=== PATIENT | male | born 1940 | race Caucasian/White ===

== ENCOUNTER 2017-03-09 19:08 | Emergency (ER) | payer OTHER ==
[~2017-03-09 19:08] MED LIST: ACT15 PO; ALDACTONE25 MG PO; BACO TOP; ELIQUIS2.5 MG PO; FOLIC ACID1 MG PO; GABAPENTIN100 M2 PO; GLIPIZIDE2.5 M1 PO; HIBICLENS118 ML TOP; HUMULIN R100 U/1 M1 SC; IBUPROFEN400 MG PO; LISINOPRIL2.5 MG PO; METFORMIN ER500 M1 PO; METHOTREXATE2.5 M2 PO; NEU300 PO; SIMVASTATIN10 M1 PO; VERAPAMIL HCL120 M2 PO
[2017-03-09 21:29] LABS: BASOPHIL % 0.3 % (0-2); PLATELET COUNT 328 x10^3mcL (130-400); RED CELL DISTRIBUTION WIDTH 13.6 % (11.5-14.5)
[2017-03-09 21:43] LABS: CALCIUM 9.4 mg/dL (8.5-10.1); CARBON DIOXIDE 29.8 mmol/L (21-32); CHLORIDE SERUM 106 mmol/L (98-107); GLUCOSE SERUM 121 mg/dL (74-106); POTASSIUM SERUM 4.1 mmol/L (3.5-5.1); SODIUM SERUM 141 mmol/L (136-145)
[2017-03-09 21:48] LABS: ALBUMIN 3.8 g/dL (3.4-5.0); ALKALINE PHOSPHATASE 84 U/L (46-116); ALT/SGPT 14 U/L (16-63); AST/SGOT 14 U/L (15-37); BILIRUBIN TOTAL 0.38 mg/dL (0.20-1.00); TOTAL PROTEIN, SERUM 8.2 g/dL (6.4-8.2)
[2017-03-09 22:05] LABS: CK-MB 3.6 ng/mL (0-3.6)
[2017-03-09 23:06] VITALS: BP 136/76
== END 2017-03-09 23:06 | disposition home or self-care (01) ==
LOC: ED 19:08
PROVIDERS: Emergency Medicine
DX: S86.911A Strain of unspecified muscle(s) and tendon(s) at lower leg level, right leg, initial encounter (principal); Z88.5 Allergy status to narcotic agent; E78.00 Pure hypercholesterolemia, unspecified; W18.30XA Fall on same level, unspecified, initial encounter; Y93.89 Activity, other specified; Y92.89 Other specified places as the place of occurrence of the external cause; Y99.8 Other external cause status
CPT/HCPCS: 36415

== ENCOUNTER 2017-06-03 11:16 | Inpatient (IN) | payer OTHER ==
[~2017-06-03] VITALS: Ht 170.2 cm; Wt 80.3 kg
[2017-06-03 13:42] LABS: CALCIUM 8.8 mg/dL (8.5-10.1); CARBON DIOXIDE 29.8 mmol/L (21-32); CHLORIDE SERUM 101 mmol/L (98-107); CREATININE SERUM 0.7 mg/dL (0.7-1.3); GLUCOSE SERUM 196 mg/dL (74-106); POTASSIUM SERUM 3.8 mmol/L (3.5-5.1); SODIUM SERUM 138 mmol/L (136-145)
[2017-06-03 13:43] LABS: BASOPHIL % 0.5 % (0-2); PLATELET COUNT 317 x10^3mcL (130-400)
[2017-06-03 13:46] LABS: ALBUMIN 3.4 g/dL (3.4-5.0); ALKALINE PHOSPHATASE 78 U/L (46-116); ALT/SGPT 16 U/L (16-63); AST/SGOT 10 U/L (15-37); BILIRUBIN TOTAL 0.4 mg/dL (0.20-1.00); TOTAL PROTEIN, SERUM 7.3 g/dL (6.4-8.2)
[2017-06-03 13:51] LABS: RED CELL DISTRIBUTION WIDTH 14.9 % (11.5-14.5)
[2017-06-03 14:30] LABS: microscopic required? NO
[2017-06-03] MEDS ORDERED: GLUCOTROL10 MG PO (15:41)
[2017-06-03] MEDS ORDERED: METFORMIN HCL1000 MG PO (15:42)
[2017-06-03 15:43] VITALS: BP 154/75
[2017-06-03 15:50] VITALS: BP 154/75
[2017-06-03 15:52] LABS: UA SPECIFIC GRAVITY 1.015 (1.005-1.035); urine erythrocyte NEGATIVE (NEGATIVE)
[2017-06-03 17:30] LABS: AMPHETAMINE QUAL UR NONE DETECTED (NEG <=1000)
[2017-06-03 17:46] LABS: MAGNESIUM 1.6 mg/dL (1.8-2.4); PHOSPHOROUS 3.5 mg/dL (2.5-4.9)
[2017-06-03 17:50] LABS: FREE T4 1.2 ng/dL (0.76-1.46); FREE THYROXINE INDEX 3.2 ug/dL (1.4-4.5); T4(THYROXINE) 8.7 ug/dL (4.7-13.3)
[2017-06-03 18:07] VITALS: BP 157/67
[2017-06-03 21:27] VITALS: BP 158/75
[2017-06-04 03:22] LABS: T3 TOTAL 0.7 ng/mL
[2017-06-04 04:56] VITALS: BP 111/53
[2017-06-04 06:35] LABS: BASOPHIL % 0.7 % (0-2); PLATELET COUNT 275 x10^3mcL (130-400)
[2017-06-04 06:49] LABS: CALCIUM 8.7 mg/dL (8.5-10.1); CARBON DIOXIDE 24.9 mmol/L (21-32); CHLORIDE SERUM 108 mmol/L (98-107); CREATININE SERUM 0.6 mg/dL (0.7-1.3); GLUCOSE SERUM 92 mg/dL (74-106); POTASSIUM SERUM 3.9 mmol/L (3.5-5.1); SODIUM SERUM 142 mmol/L (136-145)
[2017-06-04 06:56] LABS: RED CELL DISTRIBUTION WIDTH 15.3 % (11.5-14.5)
[2017-06-04 13:24] VITALS: BP 140/74
[2017-06-04 18:06] VITALS: BP 133/60
[2017-06-04 21:09] VITALS: BP 104/42
[2017-06-05 06:10] VITALS: BP 134/64
[2017-06-05 08:13] LABS: CARBON DIOXIDE 25.7 mmol/L (21-32); CHLORIDE SERUM 107 mmol/L (98-107); CREATININE SERUM 0.6 mg/dL (0.7-1.3); MAGNESIUM 1.6 mg/dL (1.8-2.4); PHOSPHOROUS 3.4 mg/dL (2.5-4.9); POTASSIUM SERUM 4.2 mmol/L (3.5-5.1); SODIUM SERUM 141 mmol/L (136-145)
[2017-06-05 08:27] LABS: BASOPHIL % 0.1 % (0-2); PLATELET COUNT 261 x10^3mcL (130-400)
[2017-06-05 08:55] LABS: RED CELL DISTRIBUTION WIDTH 15.1 % (11.5-14.5)
[2017-06-05 09:02] LABS: GLUCOSE SERUM 34 mg/dL (74-106)
[2017-06-05 10:11] VITALS: BP 143/62
[2017-06-05 13:30] VITALS: BP 131/60
[2017-06-05 17:04] VITALS: BP 141/60
[2017-06-05 17:05] VITALS: BP 124/66
[2017-06-05 21:37] VITALS: BP 130/64
[2017-06-06 06:19] VITALS: BP 131/58
[2017-06-06 08:33] LABS: CALCIUM 8.3 mg/dL (8.5-10.1); CARBON DIOXIDE 25.4 mmol/L (21-32); CHLORIDE SERUM 104 mmol/L (98-107); CREATININE SERUM 0.6 mg/dL (0.7-1.3); GLUCOSE SERUM 106 mg/dL (74-106); MAGNESIUM 1.7 mg/dL (1.8-2.4); POTASSIUM SERUM 4.3 mmol/L (3.5-5.1); SODIUM SERUM 137 mmol/L (136-145)
[2017-06-06 09:10] LABS: BASOPHIL % 0.7 % (0-2); PLATELET COUNT 283 x10^3mcL (130-400); RED CELL DISTRIBUTION WIDTH 14.7 % (11.5-14.5)
[2017-06-06 10:01] VITALS: BP 149/65
[2017-06-06 11:47] VITALS: BP 149/65
[2017-06-06] MEDS ORDERED: AMOXICILLIN500 MG PO (12:45)
[2017-06-06] MEDS ORDERED: LAC PO (12:46)
[2017-06-06 12:59] VITALS: BP 126/62
[2017-06-06 22:33] VITALS: BP 153/78
[2017-06-07 07:05] VITALS: BP 145/63
[2017-06-07 07:52] LABS: BASOPHIL % 0.8 % (0-2); PLATELET COUNT 290 x10^3mcL (130-400); RED CELL DISTRIBUTION WIDTH 14.5 % (11.5-14.5)
[2017-06-07 08:59] LABS: CALCIUM 8.8 mg/dL (8.5-10.1); CARBON DIOXIDE 24.9 mmol/L (21-32); CHLORIDE SERUM 102 mmol/L (98-107); CREATININE SERUM 0.6 mg/dL (0.7-1.3); GLUCOSE SERUM 120 mg/dL (74-106); MAGNESIUM 1.7 mg/dL (1.8-2.4); POTASSIUM SERUM 4.3 mmol/L (3.5-5.1); SODIUM SERUM 136 mmol/L (136-145)
[2017-06-07 10:00] VITALS: BP 128/55
[2017-06-07 17:52] VITALS: BP 124/77
[2017-06-07 18:19] VITALS: BP 149/65
== END 2017-06-07 19:43 | DRG 602 ==
LOC: ED 11:16 → MU 14:18 → DU 14:18 → MU 06-06 22:04
PROVIDERS: Emergency Medicine; Family Medicine; Family Medicine Sports Medicine
DX: L03.115 Cellulitis of right lower limb (principal); N17.0 Acute kidney failure with tubular necrosis; E11.51 Type 2 diabetes mellitus with diabetic peripheral angiopathy without gangrene; E11.65 Type 2 diabetes mellitus with hyperglycemia; L03.116 Cellulitis of left lower limb; E83.42 Hypomagnesemia; I87.2 Venous insufficiency (chronic) (peripheral); D64.9 Anemia, unspecified; I10 Essential (primary) hypertension; M06.9 Rheumatoid arthritis, unspecified; R29.6 Repeated falls; E78.5 Hyperlipidemia, unspecified; Z91.81 History of falling; Z79.4 Long term (current) use of insulin; Z68.27 Body mass index [BMI] 27.0-27.9, adult; Z79.84 Long term (current) use of oral hypoglycemic drugs
CPT/HCPCS: 82962; 83880; 84439; 97110-GP; 97116-GP; 97530-GP; J0290; J0295; J1885; J3490; J7030; J7042; J7050; Q0092; Q0163

== ENCOUNTER 2017-08-17 15:43 | Emergency (ER) | payer OTHER ==
[~2017-08-17] VITALS: Ht 172.7 cm; Wt 81.6 kg
[~2017-08-17 15:43] MED LIST changes: +AMOXICILLIN500 MG PO; +GLUCOTROL10 MG PO; +LAC PO; +METFORMIN HCL1000 MG PO
[2017-08-17 15:49] VITALS: Ht 172.7 cm; Wt 81.6 kg
[2017-08-17 17:07] LABS: microscopic required? NO
[2017-08-17 17:24] LABS: BASOPHIL % 0.2 % (0-2); PLATELET COUNT 355 x10^3mcL (130-400); RED CELL DISTRIBUTION WIDTH 14.5 % (11.5-14.5)
[2017-08-17 17:29] LABS: CALCIUM 8.9 mg/dL (8.5-10.1); CARBON DIOXIDE 27.4 mmol/L (21-32); CHLORIDE SERUM 102 mmol/L (98-107); CREATININE SERUM 0.8 mg/dL (0.7-1.3); GLUCOSE SERUM 91 mg/dL (74-106); POTASSIUM SERUM 4.3 mmol/L (3.5-5.1); SODIUM SERUM 137 mmol/L (136-145)
[2017-08-17 17:30] LABS: UA SPECIFIC GRAVITY 1.015 (1.005-1.035); urine erythrocyte NEGATIVE (NEGATIVE)
[2017-08-17 17:34] LABS: ALBUMIN 3.4 g/dL (3.4-5.0); ALKALINE PHOSPHATASE 74 U/L (46-116); ALT/SGPT 15 U/L (16-63); AST/SGOT 13 U/L (15-37); BILIRUBIN TOTAL 0.2 mg/dL (0.20-1.00); TOTAL PROTEIN, SERUM 7.8 g/dL (6.4-8.2)
[2017-08-17 18:38] VITALS: BP 120/64
== END 2017-08-17 18:38 | disposition home or self-care (01) ==
LOC: ED 15:43
PROVIDERS: Emergency Medicine
DX: S09.8XXA Other specified injuries of head, initial encounter (principal); M25.511 Pain in right shoulder; M54.9 Dorsalgia, unspecified; I10 Essential (primary) hypertension; E11.9 Type 2 diabetes mellitus without complications; E78.00 Pure hypercholesterolemia, unspecified; M06.9 Rheumatoid arthritis, unspecified; Z88.5 Allergy status to narcotic agent; W18.30XA Fall on same level, unspecified, initial encounter; Y93.89 Activity, other specified; Y99.8 Other external cause status; Y92.89 Other specified places as the place of occurrence of the external cause
CPT/HCPCS: 36415

== ENCOUNTER 2018-01-08 19:27 | Emergency (ER) | payer OTHER ==
[~2018-01-08] VITALS: Ht 170.2 cm; Wt 77.1 kg
[2018-01-08 19:33] VITALS: Ht 170.2 cm; Wt 77.1 kg
[2018-01-08 21:50] LABS: BASOPHIL % 0.6 % (0-2); PLATELET COUNT 315 x10^3mcL (130-400); RED CELL DISTRIBUTION WIDTH 14.5 % (11.5-14.5)
[2018-01-08 22:01] LABS: CALCIUM 9.4 mg/dL (8.5-10.1); CARBON DIOXIDE 26.5 mmol/L (21-32); CHLORIDE SERUM 103 mmol/L (98-107); CREATININE SERUM 0.8 mg/dL (0.7-1.3); GLUCOSE SERUM 78 mg/dL (74-106); POTASSIUM SERUM 3.8 mmol/L (3.5-5.1); SODIUM SERUM 140 mmol/L (136-145)
[2018-01-08 22:06] LABS: ALBUMIN 3.9 g/dL (3.4-5.0); ALKALINE PHOSPHATASE 74 U/L (46-116); ALT/SGPT 20 U/L (16-63); AST/SGOT 11 U/L (15-37); CHOLESTEROL 149 mg/dL (<200); URIC ACID 6.1 mg/dL (3.5-7.2)
[2018-01-08 22:08] LABS: HDL CHOLESTEROL 67 mg/dL (40-60); TOTAL PROTEIN, SERUM 8.5 g/dL (6.4-8.2)
[2018-01-08 23:14] VITALS: BP 151/91
== END 2018-01-08 23:14 | disposition home or self-care (01) ==
LOC: ED 19:27
PROVIDERS: Emergency Medicine
DX: I87.8 Other specified disorders of veins (principal); I10 Essential (primary) hypertension; E11.9 Type 2 diabetes mellitus without complications; E78.00 Pure hypercholesterolemia, unspecified; M06.9 Rheumatoid arthritis, unspecified; Z88.5 Allergy status to narcotic agent
CPT/HCPCS: 36415; 83880; Q0092

== ENCOUNTER 2018-11-17 15:39 | Inpatient (IN) | payer OTHER ==
[~2018-11-17] VITALS: Ht 172.7 cm; Wt 89.4 kg
[2018-11-17 15:46] VITALS: Ht 172.7 cm; Wt 89.4 kg
--- NOTE | 2018-11-17 15:51 | NUR ---
PT WAS B/B AMBULANCE FROM HOME FOR ALOC. PT WAS A/OX3. FOLLOWS COMMAND, SPEAKS FULL SENTENCES, LITTLE BIT OF HARD HEARING. LUNG SOUND CLEAR, BRATHING EVEN. NO SOB. ABDOMEN ROUND AND OBESE. BILATERAL LOWER EXTREMITES SWELLING WITH CELLULITIS. HX OF DM.
[2018-11-17 16:32] LABS: PLATELET COUNT 281 x10^3mcL (130-400); RED CELL DISTRIBUTION WIDTH 14.4 % (11.5-14.5)
[2018-11-17 16:38] LABS: CALCIUM 9.2 mg/dL (8.5-10.1); CARBON DIOXIDE 23.8 mmol/L (21-32); CHLORIDE SERUM 96 mmol/L (98-107); GLUCOSE SERUM 289 mg/dL (74-106); POTASSIUM SERUM 3.8 mmol/L (3.5-5.1); SODIUM SERUM 131 mmol/L (136-145)
[2018-11-17 16:42] LABS: ALBUMIN 3.8 g/dL (3.4-5.0); ALKALINE PHOSPHATASE 95 U/L (46-116); ALT/SGPT 15 U/L (16-63); AST/SGOT 6 U/L (15-37); BILIRUBIN TOTAL 0.64 mg/dL (0.20-1.00)
--- NOTE | 2018-11-17 17:07 | NUR ---
PT FEELING OF THIRSTY. WATER WAS OFFERED TO PT.
[2018-11-17 17:25] LABS: BAND NEUTROPHIL 16 % (0-10); BASOPHIL 0 % (0-2); MONOCYTE 1 % (0-7); SEGMENTED NEUTROPHILS 80 % (37-75)
[2018-11-17 17:26] LABS: PLATELET MORPHOLOGY GIANT PLATELET SEEN; rbc morphology (normal/abnorm) NORMAL (NORMAL)
--- NOTE | 2018-11-17 18:26 | NUR ---
URINE SAMPLE WAS COLLECTED. URINE DIP DONE. SAMPLE SENT TO LAB.
--- NOTE | 2018-11-17 19:10 | NUR ---
REPORT RECEIVED FROM HIRNE BLAKE
[2018-11-17 19:13] LABS: microscopic required? YES; urine erythrocyte NEGATIVE (NEGATIVE)
--- NOTE | 2018-11-17 20:01 | NUR ---
REPORT GIVEN TO TODD BLAKE
--- NOTE | 2018-11-17 20:10 | NUR ---
RECEIVED PT VIA GUERNEY FROM E/D, ACCOMPANIED BY RN AND TRANSPORTER. PT A/A/O X 4, CALM, COOPERATIVE; PT RED CLIFF BILATERAL EARS. PT W/ GENERALIZED WEAKNESS, STATES THAT HE AMBULATES AT HOME W/ WALKER OR VIA W/C; FALL RISK PROTOCOL INITIATED. ON TELE # 22, HR 98, SR W/ BBB, DENIES CHEST PAIN OR DISCOMFORT AT THIS TIME. BEATA RADIAL PULSES PRESENT, BEATA PEDAL PULSES WEAK, +3 PITTING EDEMA TO BLE, CAP REFILL < 3 SECS, SCD BY BEDSIDE. LUNGS CTAB, CHEST RISING EVENLY, R/A, 95%, NO ACUTE RESPIRATORY DISTRESS NOTED. ABD SOFT, ROUND, NON-TENDER, NORMOACTIVE BOWEL SOUNDS X 4 QUADS, LAST BM 11/17/18, FORMED, BOWEL INCONTINENT. VOIDS FREELY, BLADDER INCONTINENT, DENIES DYSURIA. BLE ALSO WITH REDNESS, SCATTERED SCABS, MYCOTIC TOENAILS, AND C/O CONSTANT CRAMPING PAIN 8/10 EXACERBATED BY MOVEMENT AND WALKING, AND RELIEVED BY RESTING AND PAIN MEDICATIONS. IV SITE LW 20G, CDI. ORIENTED PT TO ROOM, BED CONTROLS, CALL LIGHT SYSTEM. SIDE RAILS UP X 2, BED IN LOW POSITION. WILL ENDORSE TO HAYDEN EISENBERG.
--- NOTE | 2018-11-17 20:38 | NUR ---
PT TRANSFERRED TO TELE FLOOR ACCOMPANIED BY NURSE AND EMT. NO S/S OF DISTRESS. RESP E/U. PT TALKING DURING TRANSFER. PT CONNECTED TO MONITOR DURING TRANSFER. IV SITE PATENT. NO S/S OF INFLITRATION. RN AT BESIDE TO ASSUME CARE OF PT.
[2018-11-17 20:48] VITALS: BP 115/54
--- NOTE | 2018-11-17 21:37 | NUR ---
NO SIGN OF DISTRESS BREATHING EASY AND NONLABOR. VOIDED WITH DIAPER,PERICARE GIVEN. AWAITING ADMISSION ORDERS FROM DR GARCIA. WILL CONTINUE TO MONITOR.
--- NOTE | 2018-11-17 21:49 | NUR ---
ATTEMPTED TO CALL GRANDDAARISTEO SOLITARIO ON HER TELEPHONE NUMBER SHE GAVE MANY TIMES RE HOME MEDS UNABLE TO REACH,
[2018-11-18 05:30] VITALS: BP 137/62
--- NOTE | 2018-11-18 05:48 | NUR ---
SLEPT FAIRLY CHECKED AT INTERVALS FOR NEEDS AND SAFETY, ALL NEEDS ATTENDED.
--- NOTE | 2018-11-18 06:56 | NUR ---
IV TO LW ACCIDENTALLY PULLED BY PATIENT REINSERTED NEW IV TO LEFT WRIST G 22. WILL ENDORSE CONTINOUS CARE TO AM SHIFT.
--- NOTE | 2018-11-18 07:10 | NUR ---
RECEIVED BEDSIDE REPORT FROM HAND LAMINATOR NURSE AT THIS TIME. PATIENT RESTING COMFORTABLY IN BED. NO APPARENT DISTRESS OR DISCOMFORT NOTED. BREATHING EVEN AND UNLABORED. NO RESPIRATORY DISTRESS NOTED. PATIENT DENIES CHEST PAIN AT THIS TIME. IV PATENT AND INTACT. ALL QUESTIONS AND CONCERNS ADDRESSED. ALL NEEDS ATTENDED. WILL CONTINUE TO MONITOR
[2018-11-18 07:14] LABS: PLATELET COUNT 241 x10^3mcL (130-400)
[2018-11-18 07:17] LABS: BASOPHIL % 0 % (0-2); RED CELL DISTRIBUTION WIDTH 14.7 % (11.5-14.5)
[2018-11-18 07:18] LABS: CALCIUM 8.3 mg/dL (8.5-10.1); CARBON DIOXIDE 26.9 mmol/L (21-32); CHLORIDE SERUM 100 mmol/L (98-107); CREATININE SERUM 0.9 mg/dL (0.7-1.3); GLUCOSE SERUM 262 mg/dL (74-106); POTASSIUM SERUM 3.9 mmol/L (3.5-5.1); SODIUM SERUM 135 mmol/L (136-145)
[2018-11-18 09:25] VITALS: BP 152/68
--- NOTE | 2018-11-18 10:00 | NUR ---
ALL MORNING MEDICATION ADMINISTERED. PATIENT TOLERATED MEDICATION WELL. NO ADVERSE EFFECTS NOTED. ALL NEEDS ATTENDED TO. WILL CONTINUE TO MONITOR
--- NOTE | 2018-11-18 11:18 | NUR ---
BLOOD SUGAR 253 AT THIS TIME. PER SLIDING SCALE 6 UNIT INSULIN COVERAGE REQUIRED. ALL NEEDS ATTENDED TO. WILL CONTINUE TO MONITOR
--- NOTE | 2018-11-18 12:26 | NUR ---
ECHOCARDIOGRAM PENDING-WITH NURSE
[2018-11-18 12:51] VITALS: BP 111/66
--- NOTE | 2018-11-18 13:10 | NUR ---
REPORTED TO DR GARCIA PATIENT BLOOD CULTURE GRAM POSITIVE COCCI IN PAIRS AND CHAINS. PER DR GARCIA, TELEPHONE ORDER FOR ONE TIME DOSE OF 1G VANCOMYCIN PHARMACY TO DOSE. TELEPHONE ORDER READ BACK, CONFIRMED, AND WILL BE FOLLOWED THROUGH. ALL NEEDS ATTENDED TO. WILL CONTINUE TO MONITOR
[2018-11-18] MEDS ORDERED: FUROSEMIDE20 MG PO (13:50)
--- NOTE | 2018-11-18 14:36 | NUR ---
PT C/O ANXIETY AMB VERBALIZATION OF ANXIOUSNESS; GIVEN LORAZEPAM 1MG IVP; DARKENED ROOM AND TURNED TV OFF FOR COMFORT. WILL ENDORSE TO HAYDEN MENDOZA.
--- NOTE | 2018-11-18 15:50 | NUR ---
PATIENT RESTING COMFORTABLY IN BED AT THIS TIME. NO DISTRESS NOTED. ATIVAN EFFECTIVE. FAMILY MEMBER AT BEDSIDE. ALL QUESTIONS AND CONCERNS ADDRESSED. ALL NEEDS ATTENDED TO. WILL CONTINUE TO MONITOR
[2018-11-18 17:03] VITALS: BP 131/64
--- NOTE | 2018-11-18 17:57 | NUR ---
SPOKE TO DR GARCIA REGARDING PATIENT MEDICATION VERAPAMIL NOT BEING ADMINISTERED THIS MORNING DUE TO PHARMACY VERIFYING AT 12. PER DR GARCIA OKAY TO GIVE ONE TIME DOSE OF VERAPAMIL 360MG AT THIS TIME. SPOKE TO PHARMACY. AWAITING ORDER TO BE PLACED. WILL PROCEED ORDERED. WILL CONTINUE TO MONITOR
--- NOTE | 2018-11-18 18:52 | NUR ---
PATIENT RESTING COMFORTABLY IN BED AT THIS TIME. NO APPARENT DISTRESS OR DISCOMFORT NOTED. IV PATENT AND INTACT. ALL QUESTIONS AND CONCERNS ADDRESSED. ALL NEEDS ATTENDED TO. SAFETY PRECAUTIONS MAINTAINED. FAMILY MEMBERS AT BEDSIDE. WILL ENDORSE ALL CARE TO APPRENTICE COOK NURSE
--- NOTE | 2018-11-18 19:37 | NUR ---
RECEIVED PATIENT IN BED AWAKE, ALERT AND ORIENTED WITH NO SIGN OF ACUTE DISTRESS. BREATHING EASY AND NONLABOR SATTING AT 96% RA. TELE#22 NSR WITH BBB ON MONITOR DENIES CHESTPAIN. SWELLING OF BILATERAL LOWER EXTREMETIES NOTED, JESSICA. ABDOMEN ROUND AND NON TENDER WITH ACTIVE BS. IV TO LW INTACT AND INFUSINGW ELL. WILL CONTINUE TO MONITOR.
--- NOTE | 2018-11-18 21:03 | NUR ---
MOVED PATIENT TO ROOM 216 B, PATIENT CONFUSED AT THIS TIME WITH SITTER AT BEDSIDE.
[2018-11-18 21:28] VITALS: BP 124/67
--- NOTE | 2018-11-18 23:47 | NUR ---
APPEAR SLEEPING WITH NO SIGN OF DISTRESS, BREATHINGEASY AND NONLABOR. SITTER AT BEDSIDE.
--- NOTE | 2018-11-19 05:07 | NUR ---
AWAKE MOST OF THE TIME CONFUSEDAND DISORIENTED SITTER AT BEDSIDE. IV TO LEFT WRIST INFILTRATED AND REINSERTED NEW IV TO RH INTACT AND INFUSING WELL. ALL NEEDS ATTENDED. REPOSITIONED FOR COMFORT.
[2018-11-19 06:10] VITALS: BP 110/55
--- NOTE | 2018-11-19 08:00 | NUR ---
ALERT AND ORIENTED. FORGETFUL. COOPERATIVE. WEAKNESS TO LOWER EXTS. SAYS HE USES WALKER AND WHEELCHAIR AT HOME. ABD ROUND AND FIRM. BREATHING SLIGHTLY LABORED. NO RESP DISTRESS. ON RA. SKIN TO LOWER EXTS.DRY WRINKLED DRY SMALL SCATTERED SCABS PATIENT COORDINATOR FRONT DESK. TRACE EDEMA TO LOWER LEGS. TELE 22 SR W BBB. NS INFUSING 100 CC HOUR RT HAND. CALL LIGHT WITHIN REACH. BED ALARM ON
[2018-11-19 09:04] VITALS: BP 124/66
--- NOTE | 2018-11-19 14:31 | NUR ---
PT WAS GIVEN ATIVAN 1220. PT SLEPT FOR AWHILE AND WOKE UP VERY CONFUSED. AND SISTER IN LAW WERE AT BEDSIDE AND WENT HOME WHEN PT WENT TO SLEEP. PT DOES NOT KNOW WHERE HE IS NOW. HE DID EARLIER. BED ALARM ON. NO SITTER AT BEDSIDE.
--- NOTE | 2018-11-19 15:44 | NUR ---
PT STILL CONFUSED. DOES NOT KNOW WHERE HE IS OR HOW HE GOT HERE.
[2018-11-19 18:06] VITALS: BP 148/72
--- NOTE | 2018-11-19 18:13 | NUR ---
RESTING QUIETLY. ATIVAN MAY HAVE BEEN WHAT CAUSED PTS CONFUSION THIS AFTERNOON. NS INFUSING 100 CC HOUR. MULTIPLE FAMILY MEMBERS INTO SEE PT TODAY. GOOD APPETITE. GOOD URINE OUTPUT. CONTINUES ON ZOSYN AND VANCO. TELE # 22 SR W BBB. NO C/O PAIN CALL LIGHT WITHIN REACH. BED IN LOW POSITION BED ALARM ON.
--- NOTE | 2018-11-19 19:13 | NUR ---
PT RECEIVED A/O X4, WITH EPISODES OF CONFUSION, ABLE TO FOLLOW SIMPLE COMMANDS. JAMUL BEATA EARS. TELE #22, DENIES ANY CP/PRESSURE. WEAK PEDAL PULSES, EDEMA TO BLE. BREATHING IS EVEN AND UNLABORED ON RA, NO RESP DISTRESS NOTED. ABD FIRM AND DISTENDED, DENIES N/V. PT HAS EPISODES OF URINARY INCONTINENCE. GENERALIZED WEAKNESS, PT USES WALKER OR WHEELCHAIR AT BASELINE. REDNESS, SCATTERED SCABS, AND DARK DISCOLORATION NOTED TO BLE, JESSICA. PT DENIES HAVING ANY PAIN AT THIS TIME. IVF INFUSING WELL TO THE RH, SITE FREE FROM REDNESS OR SWELLING. BED IN LOWEST SETTING, SIDE RAILS UP X2, BED ALARM ON, CALL LIGHT WITHIN REACH. SITTER AT BEDSIDE. NO ACUTE DISTRESS NOTED. WILL CONT TO MONITOR.
--- NOTE | 2018-11-19 21:08 | NUR ---
PT C/O 10/ HEADACHE, PRN TYLENOL GIVEN ORDERED. NO ACUTE DISTRESS NOTED. WILL CONT TO MONITOR.
[2018-11-19 21:19] VITALS: BP 148/69
--- NOTE | 2018-11-20 00:25 | NUR ---
PT RESTING IN BED WITH EYES CLOSED, BUT IS EASILY AROUSABLE. BREATHING IS EVEN AND UNLABORED, NO RESP DISTRESS NOTED. NO S/S OF PAIN OBSERVED. IVF INFUSING WELL, SITE WNL. SITTER AT BEDSIDE. BED ALARM ON. NO ACUTE DISTRESS NOTED. WILL CONT TO MONITOR.
--- NOTE | 2018-11-20 04:05 | NUR ---
IV TO RH NOTED SLIGHTLY SWOLLEN. PT DENIES ANY PAIN TO THE SITE, PT STATES, "IT'S UNCOMFORTABLE, BUT NOT PAINFUL." IV CATH DC'd, CATH INTACT. RUE ELEVATED ONTO PILLOW, AND WARM COMPRESS APPLIED. NEW IV INSERTED TO LFA, 20G, PT TOLERATED WELL. NO ACUTE DISTRESS NOTED. CALL LIGHT WITHIN REACH. WILL CONT TO MONITOR.
[2018-11-20 05:41] VITALS: BP 143/65
[2018-11-20 06:40] LABS: PLATELET COUNT 250 x10^3mcL (130-400)
--- NOTE | 2018-11-20 07:05 | NUR ---
RECEIVED PT FROM NOC RN. PT FOUND RESTING WITH BOTH EYES CLOSED. EASILY AROUSABLE TO VERBAL STIMULI. FACE SYMMETRICAL, SPEECH CLEAR. AA/OX4. NO S/S OF ACUTE DISTRESS. DENIES PAIN AT THIS TIME. NO SOB ON ROOM AIR. CALM/COOPERATIVE. IV WNL TO LFA, NO REDNESS, NO SWELLING, NO INFILTRATION. NSR ON TELE, HR 76. DENIES CHEST PAIN. [place] LEFT EAR. FALL PRECAUTIONS IN PLACE. BED IN LOW POSITION. CALL LIGHT WITHIN REACH. INSTRUCTED TO USE CALL LIGHT TO CALL FOR ASSISTANCE BEFORE GETTING OOB/PRN. VERBALIZED UNDERSTANDING. PT IN ROOM CLOSE TO NURSES STATION. WILL CONTINUE TO MONITOR.
[2018-11-20 07:11] LABS: CALCIUM 8.7 mg/dL (8.5-10.1); CARBON DIOXIDE 23.8 mmol/L (21-32); CHLORIDE SERUM 107 mmol/L (98-107); CREATININE SERUM 0.9 mg/dL (0.7-1.3); GLUCOSE SERUM 129 mg/dL (74-106); POTASSIUM SERUM 3.9 mmol/L (3.5-5.1); RED CELL DISTRIBUTION WIDTH 14.8 % (11.5-14.5); SODIUM SERUM 141 mmol/L (136-145)
--- NOTE | 2018-11-20 07:29 | NUR ---
PT SLEPT AT INTERVALS THROUGHOUT THE EVENING. BREATHING IS EVENING AND UNLABORED, NO RESP DISTRESS NOTED. PT DENIES HAVING ANY PAIN AT THIS TIME. RUE REMAINS ELEVATED ON PILLOW, SWELLING DECREASED. IVF INFUSING WELL TO [facility], SITE WNL. NO ACUTE DISTRESS NOTED. ALL NEEDS MET. BED ALARM ON, SITTER AT BEDSIDE. CALL LIGHT WITHIN REACH. CONTINUITY OF CARE ENDORSED TO AM NURSE. ALL QUESTIONS AND CONCERNS ADDRESSED.
--- NOTE | 2018-11-20 07:57 | NUR ---
VANCO TROUGH 14.5. PHARMACIST AWARE, WILL CONTINUE SAME DOSE DIRECTED BY PHARMACIST.
--- NOTE | 2018-11-20 12:10 | NUR ---
PT INCONTINENT OF URINE. PERICARE PROVIDED. ASSISTED TO REPOSITION. AA/OX4. NO S/S OF ACUTE DISTRESS. NO COMPLAINT OF PAIN. NO SOB ON ROOM AIR. CALM/COOPERATIVE. IV WNL, IV FLUIDS FLOWING. BED IN LOW POSITION. CALL LIGHT WITHIN REACH. FALL PRECAUTIONS IN PLACE. WILL CONTINUE TO MONITOR.
--- NOTE | 2018-11-20 13:24 | NUR ---
WOUND CARE EVALUATION NOTE: REASON FOR EVALUATION: LEGS CELLULITIS WOUND SKIN ASSESSMENT DONE WITH PRIMARY RN ON THIS 78 Y/O MALE PT ADMITTED FROM HOME TO [facility] WITH INITIAL DX AMS. ALL ABOVE INFORMATION OBTAINED FROM ADMISSION H&P. PT IS AWAKE. SKIN IS WARM AND DRY, BLE NO HAIR GROWTH, NO EDEMA. DORSAL PEDAL PULSES PRESENT AND DIMINISHED, FUNGAL TOENAILS X 10 TOES. INCONTINENT OF BOWEL AND BLADDER. PLAN OF CARE DISCUSSED WITH PRIMARY RN. INTEGUMENTARY: -INTERTRIGO TO LOWER ABDOMINAL FOLD, R/ L GROINS AND R/L MEDIAL THIGHS, RASHES, WITH SKIN INTACT -XEROSIS TO BILATERAL LOWER EXTREMITIES WITH MULTIPLE DRY SCABS -BLANCHABLE REDNESS ON SACRALCOCCYX, SKIN IN TACT RECOMMENDATIONS: -KEEP SKIN DRY AND CLEAN AT ALL TIMES, PLEASE CHECK Q2H AND PRN FOR INCONTINENCY OF BOWEL AND BLADDER. -APPLY ANTIFUNGAL CREAM TO LOWER ABDOMINAL FOLD, R/ L GROINS AND R/L MEDIAL THIGHS BID AND PRN IS SOILING -APPLY HYDRAGUARD TO R/L LOWER LEGS BID AND GOLD PROSPECTOR -APPLY FORM DRESSING TO SACROCOCCY Q7 DAYS AND PRN IF SOILING PREVENTION -APPLY HEEL PROTECTORS TO RIGHT / LEFT HEELS WHEN IN BED -OFFLOAD BILATERAL HEELS BY PLACING PILLOWS UNDER CALVES UNLESS OTHERWISE CONTRAINDICATED -PRESSURE REDISTRIBUTION SURFACE THERAPY -TURN AND REPOSITION Q2H -CONTINUE TO FOLLOW RD RECOMMENDATIONS -POLLOW UP WITH OUT PATIENT PODIADRY ALL ABOVE RECOMMENDATIONS DISCUSSED WITH PRIMARY RN. PLEASE CONTACT WOUND CARE NURSE FOR ANY QUESTION AND CHANGE OF WOUND CONDITION.
[2018-11-20 16:32] LABS: BAND NEUTROPHIL 0 % (0-10); BASOPHIL 0 % (0-2); MONOCYTE 2 % (0-7); SEGMENTED NEUTROPHILS 77 % (37-75); rbc morphology (normal/abnorm) ABNORMAL (NORMAL)
[2018-11-20 16:33] LABS: PLATELET MORPHOLOGY LARGE PLATELET SEEN
[2018-11-20 18:11] VITALS: BP 159/75
--- NOTE | 2018-11-20 18:41 | NUR ---
PT INCONTINENT OF URINE AND STOOL, PERICARE PROVIDED, WOUND CARE PROVIDED PER PHYSICIAN ORDER--LOWER ABDOMINAL FOLD, RIGHT/LEFT YESSICA, RIGHT/LEFT MEDIAL THIGHS CLEANSED WITH MILD SOAP AND WATER, RINSED, GENTLY PATTED DRY, ANTIFUNGAL CREAM APPLIED. SACRALCOCCYX CLEANED WITH MILD SOAP AND WATER, RINSED, PATTED DRY. PT TOLERATED ACTIVITY WELL. HYDRAGUARD APPLIED BLE. BLE ELEVATED WITH PILLOW. AIR MATTRESS IN PLACE. NO N/V. NO SOB ON ROOM AIR. NO CHEST PAIN. TOLERATED ACTIVITY WELL. BED IN LOW POSITION. CALL LIGHT WITHIN REACH. FAMILY AT BEDSIDE. HOB ELEVATED. WILL ENDORSE TO ONCOMING SHIFT.
--- NOTE | 2018-11-20 19:02 | NUR ---
PT RECEIVED A/O X4, WITH EPISODES OF CONFUSION, ABLE TO FOLLOW SIMPLE COMMANDS. [place] BEATA EARS. TELE #22, DENIES ANY CP/PRESSURE. BREATHING IS EVEN AND UNLABORED ON RA, NO RESP DISTRESS NOTED. ABD FIRM AND DISTENDED, DENIES N/V. PT HAS EPISODES OF URINARY INCONTINENCE. GENERALIZED WEAKNESS, ON AIR MATTRESS. ERYTHEMA, SCATTERED SCABS, AND DARK DISCOLORATION NOTED TO BLE, JESSICA. RASH NOTED TO GROIN AND PERINEAL AREA. PT DENIES HAVING ANY PAIN AT THIS TIME. IVF INFUSING WELL TO THE LFA, SITE FREE FROM REDNESS OR SWELLING. BED IN LOWEST SETTING, SIDE RAILS UP X2, BED ALARM ON, CALL LIGHT WITHIN REACH. SITTER AT BEDSIDE. NO ACUTE DISTRESS NOTED. WILL CONT TO MONITOR.
[2018-11-20 19:44] VITALS: BP 155/74
--- NOTE | 2018-11-21 03:29 | NUR ---
PT INCONTINENT OF URINE AND STOOL, SOFT. PT CLEANED AND REPOSITION. HYDRAGUARD AND ANTIFUNGAL APPLIED. NO ACUTE DISTRESS NOTED. PT DENIES HAVING ANY PAIN AT THIS TIME. SITTER AT BEDSIDE. CALL LIGHT WITHIN REACH. WILL CONT TO MONITOR.
[2018-11-21 06:23] VITALS: BP 158/75
[2018-11-21 06:33] LABS: BASOPHIL % 0.3 % (0-2); PLATELET COUNT 302 x10^3mcL (130-400)
--- NOTE | 2018-11-21 06:41 | NUR ---
PT SLEPT AT INTERVALS THROUGHOUT THE EVENING. BREATHING IS EVENING AND UNLABORED, NO RESP DISTRESS NOTED. PT DENIES HAVING ANY PAIN AT THIS TIME. IVF INFUSING WELL TO [facility], SITE WNL. NO ACUTE DISTRESS NOTED. ALL NEEDS MET. BED ALARM ON, SITTER AT BEDSIDE. CALL LIGHT WITHIN REACH. WILL ENDORSE CARE TO AM NURSE.
[2018-11-21 06:56] LABS: CALCIUM 8.8 mg/dL (8.5-10.1); CARBON DIOXIDE 25.9 mmol/L (21-32); CHLORIDE SERUM 106 mmol/L (98-107); CREATININE SERUM 0.8 mg/dL (0.7-1.3); GLUCOSE SERUM 84 mg/dL (74-106); POTASSIUM SERUM 3.9 mmol/L (3.5-5.1); SODIUM SERUM 142 mmol/L (136-145)
[2018-11-21 07:00] LABS: RED CELL DISTRIBUTION WIDTH 15.1 % (11.5-14.5)
--- NOTE | 2018-11-21 07:29 | NUR ---
PT IN NO ACUTE DISTRESS. CONTINUITY OF CARE ENDORSED TO AM NURSE. ALL QUESTIONS AND CONCERNS ADDRESSED.
--- NOTE | 2018-11-21 07:30 | NUR ---
PATIENT RESTING IN BED, NO ACUTE DISTRESS NOTED. PATIENT DENIES PAIN AT THIS TIME. PATIENT IS A/OX4, NO CONFUSION NOTED AT THIS TIME. TELE MONITOR IN PLACE. TRACE OF EDEMA TO BLE, BLE MAINTAINED ELEVATED. DENIES SOB, PATIENT ON ROOM AIR. AIR MATRESS IN PLACE. NS IV INFUSING TO LFA AT 100ML/HR, IV SITE CDI & PATENT, NO S/S OF INFILTRATION. CALL LIGHT WITHIN REACH, BED IN LOW POSITION, WILL CONTINUE TO MONITOR FOR CHANGES.
[2018-11-21 08:35] VITALS: BP 158/69
--- NOTE | 2018-11-21 10:00 | NUR ---
PATIENT IS UP AND AMBULATING HALLWAYS WITH PHYSICAL THERAPY.
[2018-11-21 13:43] VITALS: BP 171/83
--- NOTE | 2018-11-21 13:58 | NUR ---
Initial Nutrition Assessment: 216T/B JULISSA GASTON IA HR Dx: ALOC, Sepsis w/lower extremity cellulitis PMHx: DM PSHx: None Labs: HGB 11.4L Meds: Aldactone, ambien, Ativan, D 10%, folic acid, Glucophage, Glucotrol, humulin, lactinex, vancomycin, zosyn Diet: Cardiac- low CHOL/L low fat/ 2g Na PO Intake: (11/21) Breakfast 50% Ht: 172.72 cm (68") Wt: 89.3 kg (196#) BMI: 30kg/m2 (obesity) Bed scale: 197# IBW:154# (70 kg) %IBW: 127 UBW: ~210# Age: 78/M Food Allergies: NKFA Skin: Erythema, scattered scabs, dark discoloration to BLE Zay: 15 Edema: BLE GI: Last BM: 11/19/18 Per H&P, Pt is a 78 yo male h/o DM HTN perip VAS DS AMS taken to the ED after found altered at home. Multiple work ups done at the ED, he was hypotensive with leukocytosis and lactic acidosis. He was than transferred to tele for further work ups. IV antibiotic started at the ED. RDN Visit (11/21): Pt was alert and oriented and said that he has good appetite however does not like hospital food. FNS received wound consult on 11/20. Per biochemistry technician note on 11/20/18, pt has xerosis to bilateral lower extremity with multiple dry scabs, intertrigo to lower abdominal fold and blanchable redness on sacral coccyx with skin intact. Pt said he gets diarrhea after drinking milk. LDA's in computrition has been updated. Discussed recommendations with Dr. Wilkerson. He agreed to it and said that he would give a telephone order to the RN. Problem with: N/V/D/C: no Problems with: Chewing/Swallowing: no Current appetite: good Recent wt change: none %wt change: none Vitamin/Supplement use: none Special diet at home: regular, watches what he eats (low sugar) Physical activity: pt said he walks with his walker and tries to stay active Nutrition education given: Diabetes education was provided using [facility] handout on 'Type 2DM Nutrition Therapy'. Concepts such as sugary beverages and portion control were discussed. Food-drug interactions: Ativan- limit caffeine <400-500 mg/day, aldactone- avoid salt substitutes Education given: yes Estimated Nutritional Needs Based on ideal body weight 70 kg Energy: 6203-2868 kcal/d (25-30 kcal/kg) Protein: 70-84 g/d (1.0-1.2 g/kg)- Fluid: 7548-1548 ml/d (1 ml/kcal) or per doctor Nutrition Diagnosis 1. Inadequate oral intake related to patient not liking hospital food as evidenced by documented PO of <75%. - improving Intervention 1. Recommend CCHO (Low fat) diet. 2. Recommend Glucerna therapeutic nutrition shake once a day Monitor/Evaluate Goal: PO intake at least 75% of estimated needs Monitor: PO intake, Labs, GI function F/U in 3-5 days as moderate risk 11/24-
--- NOTE | 2018-11-21 13:59 | NUR ---
1. Recommend CCHO (Low fat) diet. 2. Recommend Glucerna therapeutic nutrition shake once a day
--- NOTE | 2018-11-21 17:00 | NUR ---
PATIENT RESTING IN BED, CONVERSING WITH FAMILY. NO ACUTE DISTRESS NOTED. PATIENT DENIES PAIN. NO CONFUSION NOTED AT THIS TIME, PATIENT IS A/OX4. CALL LIGHT WITHIN REACH, BED IN LOW POSITION, WILL CONTINUE TO MONITOR.
[2018-11-21 17:44] VITALS: BP 135/71
--- NOTE | 2018-11-21 18:10 | NUR ---
PATIENT RESTING IN BED, NO ACUTE DISTRESS NOTED. PATIENT DENEIS SOB, ON ROOM AIR. TELE MONITOR IN PLACE. AIR MATRESS IN PLACE, PATIENT ABLE TO ASSIST WITH TURNING. NS IV INFUSING AT 10ML/HR, TKO. IV SITE CDI & PATENT, NO S/S OF INFILTRATION. CALL LIGHT WITHIN REACH, BED IN LOW POSITION. WILL ENDORSE REPORT TO NIGHT NURSE.
--- NOTE | 2018-11-21 19:33 | NUR ---
RECEIVED PATIENT IN BED AWAKE, ALERT WITH PERIOD OF CONFUSION, NO SIGN OF ACUTE DITRESS BREATHING EASY AND NONLABOR. SITTER AT BEDSIDE. [id number] SR WITH BBB ON MONITOR. SWELLING OF BILATERAL LEGS WITH ERYTHEMA AND SCATTERED SCABS WET FINISHER WOOL. IV TO LFA HEPLOCK FLUSHED WITH NS. WILL CONTINUE TO MONITOR.
[2018-11-21 20:15] VITALS: BP 173/88
--- NOTE | 2018-11-22 01:42 | NUR ---
AWAKE C/O BILATERAL LEGPAIN MEDOCATED WITH NORCO 1 TAB PO PRESCRIBED. WILL CONTINUE TO MONITOR.
--- NOTE | 2018-11-22 05:19 | NUR ---
SLEPT AT LONG INTERVALS AFTER PAIN MEDS WAS GIVEN. CHECKED AT INTERVALS FOR NEEDS AND SAFETY. ALL NEEDS ATTENDED.
--- NOTE | 2018-11-22 05:51 | NUR ---
BLOOD SUGAR CHECKED- 57. PATIENT AWAKE AND NO DISTRESS NOTED, D10 IV GIVEN PRESCRIBED. WILL RECHECKED BLOOD SUGAR.
[2018-11-22 06:13] VITALS: BP 138/63
--- NOTE | 2018-11-22 06:30 | NUR ---
BLOOD SUGAR 126, RECHECKED AFTER D10 WAS GIVEN. PATIENT AWAKE AND NO SIGN OF DISTRESS NOTED. WILL ENDORSE CONTINOUS CARE TO AM SHIFT.
--- NOTE | 2018-11-22 07:25 | NUR ---
PHYSICAL THERAPY DAILY NOTES CO-SIGN All documentation done by the Chemical Laboratory Chief for 11/22/18 has been reviewed. I agree with the documentation. Reviewed/Co-Signed by: Rhoda Ash PT Documentation Done by:EVY GARCIA PTA FOR 11/21/18
--- NOTE | 2018-11-22 07:25 | NUR ---
RECEIVED PT. IN BED A/A/O X2. PT. IS ONLY ORIENTED TO PERSON AND PLACE. NO SOB, NO N/V NOTED. PT. DENIES ANY PAIN AT THIS TIME. IV SITE NOTED TO Marge JAVED. PT. IS ON AIR MATTRESS. LOAD OUT SUPERVISOR AT BEDSIDE TO MAINTAIN SAFETY. BED IN LOW POS., CALL LIGHT WITHIN REACH. SIDE RAILS UP X3.
[2018-11-22 08:25] VITALS: BP 178/93
--- NOTE | 2018-11-22 10:03 | NUR ---
NOTED PT. A/A/O X3 AT THIS TIME. CONTINUING EDUCATION SPECIALIST PRESENT TO HELP WITH ADL.
[2018-11-22 10:30] VITALS: BP 136/75
[2018-11-22 15:00] VITALS: BP 144/82
--- NOTE | 2018-11-22 16:05 | NUR ---
CALLED AND GAVE REPORT TO ABI COOPER AT [facility]. ALL QUESTIONS AND CONCERNS ADDRESSED.
--- NOTE | 2018-11-22 16:23 | NUR ---
DISCHARGE PAPER-WORK SIGNED BY PT. ALL QUESTIONS AND CONCERNS ADDRESSED. PHOTOGRAPHS OF SKIN CONDITION TAKEN.
--- NOTE | 2018-11-22 18:44 | NUR ---
PT. IS BEING TRANSPORTED TO [facility] IN STABLE CONDITION VIA [facility]. ALL BELONGINGS SENT WITH PT. UPON TRANSFER.
--- NOTE | 2018-11-23 08:38 | NUR ---
PHYSICAL THERAPY DAILY NOTES CO-SIGN All documentation done by the Plant Care Worker for 11/23/18 has been reviewed. I agree with the documentation. Reviewed/Co-Signed by: Rhoda Ash PT Documentation Done by:EVY GARCIA PTA FOR 11/22/18
== END 2018-11-22 18:44 | DRG 871 ==
LOC: ED 15:39 → DU 19:24
PROVIDERS: Emergency Medicine; ADMIT Internal Medicine
DX: A40.1 Sepsis due to streptococcus, group B (principal); G93.41 Metabolic encephalopathy; L03.115 Cellulitis of right lower limb; E87.2 Acidosis; N17.9 Acute kidney failure, unspecified; E11.65 Type 2 diabetes mellitus with hyperglycemia; M06.9 Rheumatoid arthritis, unspecified; I10 Essential (primary) hypertension; I87.8 Other specified disorders of veins; R10.9 Unspecified abdominal pain; G89.29 Other chronic pain; M54.9 Dorsalgia, unspecified; Z99.3 Dependence on wheelchair; Z79.4 Long term (current) use of insulin; Z68.29 Body mass index [BMI] 29.0-29.9, adult; Z79.84 Long term (current) use of oral hypoglycemic drugs; Z86.718 Personal history of other venous thrombosis and embolism
CPT/HCPCS: 82962; 97116-GP; 97530-GP; B4164; G0378; J0696; J1956; J2060; J2405; J2543; J3010; J3370; J7030; Q0092